=== PATIENT | male | born 1965 | race Caucasian/White ===

== ENCOUNTER 2019-01-14 04:40 | Emergency (ER) | payer MEDICAID ==
[~2019-01-14] VITALS: Ht 175.3 cm; Wt 77.1 kg
[2019-01-14] MEDS ORDERED: LIDOCAINE 1% HCL (LOCAL ANESTH.) INJ 20ML MDV ID ONE (06:15)
[2019-01-14 06:22] VITALS: BP 123/73
[2019-01-14] MEDS ORDERED: NEOMYCIN-BACITRACIN-POLYM UNITDOSE PKG TOP OINT TOP ONE (06:45)
[2019-01-14] MEDS ORDERED: cefTRIAXone SOD 1,000 MG VL IM ONE (06:45)
== END 2019-01-14 07:11 | disposition home or self-care (01) ==
LOC: ER 04:40
DX: S61.207A Unspecified open wound of left little finger without damage to nail, initial encounter (principal); F12.10 Cannabis abuse, uncomplicated; Z90.49 Acquired absence of other specified parts of digestive tract; Z88.8 Allergy status to other drugs, medicaments and biological substances; W23.0XXA Caught, crushed, jammed, or pinched between moving objects, initial encounter; Y93.89 Activity, other specified; Y92.812 Truck as the place of occurrence of the external cause; Y99.8 Other external cause status
CPT/HCPCS: 11730; 73140; 96372; 99283; J0696; J2001

== ENCOUNTER 2023-11-01 04:30 | Emergency (ER) | payer MEDICAID ==
[~2023-11-01] VITALS: Ht 177.8 cm; Wt 79.0 kg
[2023-11-01 05:23] LABS: Basophils # (auto) 0 10 ^3/uL (0-0.2); Basophils % (auto) 0.4 % (0.0-2.0); Eosinophils # (auto) 0.4 10 ^3/uL (0-0.8); Eosinophils % (auto) 7.2 % (0.0-7.0); Hemoglobin 14.3 g/dL (13.5-17.5); Lymphocytes # (auto) 1.9 10 ^3/uL (0.4-5.4); Lymphocytes % (auto) 36.6 % (10.0-50.0); Mean Corpuscular Hemoglobin 28.5 pg (28.0-32.0); Mean Corpuscular Hgb Conc. 33.1 g/dL (32.0-36.0); Mean Corpuscular Volume 86.1 fL (80.0-100.0); Monocytes # (auto) 0.7 10 ^3/uL (0-1.3); Monocytes % (auto) 12.6 % (0.0-12.0); Neutrophils # (auto) 2.2 10 ^3/uL (1.6-8.6); Neutrophils % (auto) 43.2 % (37.0-80.0); Nucleated Red Blood Cells % 0.1 %; Red Cell Distribution Width 13.3 % (11.8-14.3); White Blood Cell 5.2 10^3/uL (4.4-10.8)
[2023-11-01 05:44] LABS: Alanine Aminotransferase 28 U/L (7-40); Albumin 3.9 g/dL (3.2-4.8); Alkaline Phosphatase 106 U/L (46-116); Anion Gap 3 (5-15); Aspartate Aminotransferase 20 U/L (13-40); BUN/Creatinine Ratio 25.3 (10.0-20.0); Bilirubin, Total 0.3 mg/dL (0.2-1.0); Blood Urea Nitrogen 21 mg/dL (9-23); Calcium 9.2 mg/dL (8.7-10.4); Carbon Dioxide 31 mmol/L (20-30); Chloride 109 mmol/L (98-107); Glucose 106 mg/dL (74-106); Lipase 40 U/L (12-53); Potassium 4.3 mmol/L (3.5-5.1); Sodium 143 mmol/L (136-145); Total Protein 6.1 g/dL (5.7-8.2)
[2023-11-01] MEDS: PANTOPRAZOLE 40 MG TAB PO ONE (07:54)
[2023-11-01] MEDS: ONDANSETRON ODT 4 MG TAB PO ONE (07:54)
[2023-11-01] MEDS: IOHEXOL 300 MG/ML 100ML BOTTLE IJ ONE ×2 (08:24→09:18)
[2023-11-01] MEDS ORDERED: PANT40TA2 PO (10:05)
[2023-11-01 10:19] VITALS: BP 135/84; PULSE 94; RESP 18; TEMP 98; O2SAT 96
== END 2023-11-01 10:21 | disposition home or self-care (01) ==
LOC: ER 04:30
DX: K21.9 Gastro-esophageal reflux disease without esophagitis (principal); E03.9 Hypothyroidism, unspecified; Z90.49 Acquired absence of other specified parts of digestive tract; Z79.899 Other long term (current) drug therapy; Z88.8 Allergy status to other drugs, medicaments and biological substances
CPT/HCPCS: 36415; 74177; 80053; 83690; 84484; 85025; 93005; 99285; Q0162; Q9967